=== PATIENT | male | born 1955 ===

== ENCOUNTER 2017-02-13 16:15 | Emergency (ER) | payer SELFPAY ==
[~2017-02-13] VITALS: Ht 180.3 cm; Wt 104.5 kg
[2017-02-13 16:33] VITALS: Ht 180.3 cm; Wt 104.5 kg
--- NOTE | 2017-02-13 16:45 | ERD ---
ER Documentation Chief Complaint Chief Complaint [address], [place] sleeping on side walk HPI This is a 51-year-old male that was brought into the emergency department by EMS. The patient was found sleeping on the front lawn of an unknown person's home. The owners of the home had walked outside and found the patient sleeping but easily arousable and phoned 911. When EMS arrived the patient was a poor historian but did not appear disheveled. They stated they were unable to get the patient ambulate but he was moving both upper and lower extremities and there is no signs of trauma or drug paraphernalia. No further history is available. The patient denies headache, chest pain, shortness of breath and denies abdominal pain. He states he has not been drinking alcohol ROS All systems reviewed and are negative except as per history of present illness. Medications Home Meds Unable to Obtain Active Prescriptions or Reported Meds Allergies Allergies: Coded Allergies: Unknown: Unable to obtain (Unverified , 02/13/17) Physical Exam Vitals Vital Signs Date Time Temp Pulse Resp B/P Pulse Ox O2 Delivery O2 Flow Rate FiO2 02/13/17 17:34 Nasal Cannula 2 02/13/17 16:33 98.3 85 19 140/83 95 Physical Exam Constitutional:Well-developed. Well-nourished. HEENT:Normocephalic. Atraumatic.Pupils were equal round reactive to light. Dry mucous membranes.No tonsillar exudates. No nasal septal hematoma. No hemotympanum. Neck: No nuchal rigidity. No lymphadenopathy. No posterior cervical spine tenderness or step-offs. Respiratory: Not using accessory muscles of respiration.Lungs were clear to auscultation bilaterally. No rhonchi. No rales. No wheezing. Cardiovascular: Regular rate regular rhythm.No murmurs. No rubs were appreciated.S1, S2 normal. Distal pulses are palpable 2+ bilaterally. GI: Abdomen was soft. Nontender. Non Distended. No pulsatile abdominal masses or bruits. No rebound. No guarding. Bowel sounds were present and normal. Muscle skeletal: Full range of motion of both the upper and lower extremities bilaterally.Normal muscle tone.No assymetrical calf tenderness or swelling. Skin: No petechia, no purpura. No lesions on the palms or the soles of the feet. No maculopapular rash. NEURO: Patient was alert, awake, orientated x3.No facial droop. Speech was not slurred. Gait not observed as patient refused to ambulate. Patient follows simple verbal command. Result Diagram: 02/13/17 1651 02/13/17 1651 Results 24 hrs Laboratory Tests Test 02/13/17 16:51 02/13/17 17:44 White Blood Count 6.010^3/ul Red Blood Count 5.2310^6/ul Hemoglobin 14.7g/dl Hematocrit 43.3% Mean Corpuscular Volume 82.8fl Mean Corpuscular Hemoglobin 28.1pg Mean Corpuscular Hemoglobin Concent 33.9g/dl Red Cell Distribution Width 15.2% Platelet Count 08943^3/UL Mean Platelet Volume 11.1fl Neutrophils % 72.3% Lymphocytes % 20.1% Monocytes % 6.5% Eosinophils % 0.3% Basophils % 0.5% Nucleated Red Blood Cells % 0.0/100WBC Neutrophils # 4.310^3/ul Lymphocytes # 1.210^3/ul Monocytes # 0.410^3/ul Eosinophils # 0.010^3/ul Basophils # 0.010^3/ul Nucleated Red Blood Cells # 0.010^3/ul Prothrombin Time 11.4Sec Prothrombin Time Ratio 0.9 INR International Normalized Ratio 0.82 Activated Partial Thromboplast Time 26.8Sec Sodium Level 144mmol/L Potassium Level 4.3mmol/L Chloride Level 99mmol/L Carbon Dioxide Level 29mmol/L Anion Gap 20 Blood Urea Nitrogen 14mg/dl Creatinine 0.92mg/dl Glucose Level 202mg/dl Calcium Level 8.4mg/dl Total Bilirubin 0.7mg/dl Direct Bilirubin 0.00mg/dl Indirect Bilirubin 0.7mg/dl Aspartate Amino Transf (AST/SGOT) 52IU/L Alanine Aminotransferase (ALT/SGPT) 62IU/L Alkaline Phosphatase 116IU/L Creatine Kinase 199IU/L Creatine Kinase Index 1.1 Creatinine Kinase MB (Mass) 2.21ng/ml Troponin I < 0.012ng/ml Total Protein 6.7g/dl Albumin 3.7g/dl Globulin 3.00g/dl Albumin/Globulin Ratio 1.23 Free Thyroxine Index 1.62ug/ml Thyroxine (T4) 5.5ug/dl Triiodothyronine (T3) Uptake 29.5% Salicylates Level < 1.0mg/dl Acetaminophen Level < 10.0ug/ml Ethyl Alcohol Level 378.0mg/dl Bedside Glucose 145mg/dL Procedures/MDM The patient presented to the emergency department with an acute and persistent change in their mental status. The differential diagnosis is diverse however reversible causes such as hypoglycemia, opiate overdose, thiamine deficiency were immediately considered. The patient was placed on a cardiac surgeon, continuous pulse oximetry and IV access was established. The patients airway was secure however hypoxic events such as anemia, shock, or severe pulmonary disease were all considered as etiologies in this patients presentation. Circulation assessed with good cap refill and did not require fluids or pressure support. Finger stick for rapid glucose determined to be normal. I obtained a CT scan of the patient's head due to changes in his mental status. This was reviewed by myself and the radiologist and indicated to followin. Mildly limited evaluation, without acute intracranial pathology identified. 2. Mild volume loss, with mild chronic small vessel ischemic changes. 3. Punctate cerebral calcification, which may be post infectious/inflammatory, sequela of neurocysticercosis. The patient had no electrolyte abnormalities. The patient's serum ethanol was elevated. Therefore did feel the patient's change in his mental status was due to toxic encephalopathy. The patient remained in the emergency department of clinical sober. Observation Note: Time: 4 hours Family Hx: No Hypertension Evaluation: Multiple exams showed improving symptoms and no evidence of impending delirium tremors. The patient was discharged home in fair condition. They were instructed to return to the emergency department at any time if there was any worsening of their condition. The patient stated they would follow up with their PCP in the next 24-48 hours to initiate a suitable medication regimen under the care of their PCP as well as to allow their PCP to monitor any drug reactions. The patient was discharged home with prescriptions after they gave informed consent to the new medication. They were also fully informed by myself on the adverse effects and adverse drug interactions in order to provide adequate safeguards to prevent possible adverse reactions to medications. Departure Diagnosis: Primary Impression: Altered mental status Altered mental status type: unspecified Qualified Code: R41.82 - Altered mental status, unspecified altered mental status type Additional Impression: Alcoholic encephalopathy Condition: Fair MATEUSZ BEVERLY Feb 13, 2017 16:45
[2017-02-13 17:12] LABS: BASOPHILS % 0.5 % (0.0-2.0); EOSINOPHILS % 0.3 % (0.0-7.0); HEMATOCRIT 43.3 % (42.0-52.0); HEMOGLOBIN 14.7 g/dl (14.0-18.0); LYMPHOCYTES # 1.2 10^3/ul (0.8-2.9); LYMPHOCYTES % 20.1 % (15.0-51.0); MEAN CORPUSCULAR HEMOGLOBIN 28.1 pg (29.0-33.0); MEAN CORPUSCULAR HGB CONC 33.9 g/dl (32.0-37.0); MEAN CORPUSCULAR VOLUME 82.8 fl (82.0-101.0); MEAN PLATELET VOLUME 11.1 fl (7.4-10.4); MONOCYTE # 0.4 10^3/ul (0.3-0.9); MONOCYTES % 6.5 % (0.0-11.0); NEUTROPHIL # 4.3 10^3/ul (1.6-7.5); NEUTROPHILS % 72.3 % (39.0-77.0); PLATELET COUNT 153 10^3/UL (140-415); RED BLOOD COUNT 5.23 10^6/ul (4.70-6.10); RED CELL DISTRIBUTION WIDTH 15.2 % (11.5-14.5)
--- NOTE | 2017-02-13 17:17 | RADRPT ---
PROCEDURE: XR Chest. CLINICAL INDICATION: Altered mental status. New TECHNIQUE: Single AP portable chest. COMPARISON: No prior Chest x-ray FINDINGS: The cardiomediastinal silhouette is within normal limits of size. Hypoinflation . The lungs are trudy r without pleural effusion or focal consolidation. No pneumothorax. The osseous structures and soft tissues are unremarkable. IMPRESSION: 1. No evidence for active cardiopulmonary disease. RPTAT:AAJJ Beata Page Physician Date Time Electronically viewed and signed by Physician Dominique on 02/13/2017 17:16 CECY/
[2017-02-13 17:32] LABS: PARTIAL THROMBOPLASTIN TIME 26.8 Sec (25.0-35.0)
[2017-02-13 17:35] LABS: INR 0.82; PROTIME 11.4 Sec (11.9-14.9); PT RATIO 0.9
[2017-02-13 17:36] LABS: ALANINE AMINOTRANSFERASE 62 IU/L (13-69); ALBUMIN 3.7 g/dl (3.3-4.9); ALBUMIN/GLOBULIN RATIO 1.23; ALKALINE PHOSPHATASE 116 IU/L (42-121); ANION GAP 20 (8-16); ASPARTATE AMINO TRANSFERASE 52 IU/L (15-46); BILIRUBIN,INDIRECT 0.7 mg/dl (0-1.1); BILIRUBIN,TOTAL 0.7 mg/dl (0.2-1.3); BLOOD UREA NITROGEN 14 mg/dl (7-20); CALCIUM 8.4 mg/dl (8.4-10.2); CARBON DIOXIDE 29 mmol/L (21-31); CHLORIDE 99 mmol/L (97-110); CREATINE KINASE 199 IU/L (23-200); CREATININE 0.92 mg/dl (0.61-1.24); GLUCOSE 202 mg/dl (70-220); POTASSIUM 4.3 mmol/L (3.5-5.1); SODIUM 144 mmol/L (135-144); TOTAL PROTEIN 6.7 g/dl (6.1-8.1)
[2017-02-13 17:49] LABS: CK-MB 2.21 ng/ml (0.0-2.4); TROPONIN-I < 0.012 ng/ml (0.00-0.12)
[2017-02-13 17:53] LABS: T3 UPTAKE 29.5 % (23.5-40.5)
--- NOTE | 2017-02-13 17:58 | RADRPT ---
PROCEDURE: CT brain without contrast CLINICAL INDICATION: Altered mental status TECHNIQUE: CT of the brain without contrast was performed on a multidetector CT scanner, with multi planar reformats. One or more of the following dose reduction techniques were used: Automated expos ure control, adjustment in mA and / or kV according to patient size, use of iterative reconstructive technique. CTDIvol = 45 mGy; DLP = 810 mGy-cm. DICOM images are available. COMPARISON: None available FINDINGS: There are patient motion related artifacts mildly limiting evaluation. No acute intracranial hemorrh age is identified. No extra-axial fluid collection is seen. There is no mass effect. No midline shift is identified. Ventricles - sulci are mildly enlarged compatible with volume loss. Mild areas of hypodensity are identified in the periventricular - deep white matter which are nonspe cific but suggestive of chronic small vessel ischemic changes. Visualized mccray-white junctions appea r preserved. Punctate calcification identified at the peripheral left frontoparietal junction at the operculum. Calvarium and skull base are intact. Partial bilateral ethmoid sinus opacification, severe right ma xillary sinus mucosal thickening, and mild-moderate right and mild left frontal sinus mucosal thicke cosme is seen. IMPRESSION: 1. Mildly limited evaluation, without acute intracranial pathology identified. 2. Mild volume loss, with mild chronic small vessel ischemic changes. 3. Punctate cerebral calcification, which may be post infectious/inflammatory, sequela of neurocyst icercosis. RPTAT: VV .Aaron Chun MD, Date Time Electronically viewed and signed by .Aaron Chun MD, on 02/13/2017 17:58 .O/
[2017-02-13 18:18] LABS: ACETAMINOPHEN < 10.0 ug/ml (10.0-30.0); SALICYLATE < 1.0 mg/dl (5.0-30.0)
[2017-02-13] MEDS ORDERED: MAGNESIUM SULFATE 2 GM, MULTIVITAMINS 10 ML, THIAMINE 100 MG, FOLIC ACID 1 MG in SOD CH... IV STA (18:27)
[2017-02-13 21:36] VITALS: BP 146/72; PULSE 85; RESP 16; TEMP 98.3
== END 2017-02-13 21:37 | disposition home or self-care (01) ==
LOC: E/R 16:15
DX: R41.82 Altered mental status, unspecified (principal); G31.2 Degeneration of nervous system due to alcohol; F10.920 Alcohol use, unspecified with intoxication, uncomplicated
CPT/HCPCS: 70450; 71010; 80053; 80306; 82550; 82553; 82962; 84436; 84479; 84484; 85025; 85610; 85730; 93005; 96374; 99285; J3411; J3475; J7030